=== PATIENT | female | born 2000 | race Caucasian/White ===

== ENCOUNTER 2024-03-25 21:36 | Emergency (ER) | payer OTHER, SELFPAY ==
[2024-03-25 21:44] VITALS: BP 126/83; PULSE 95; RESP 17; TEMP 36.8; O2SAT 99; BMI 24.7
--- NOTE | 2024-03-25 23:09 | ED.DENTAL ---
HPI - Dental/Oral General Chief complaint: Dental/Oral Stated complaint: face pain/ Time Seen by Provider: 03/25/24 22:45 Source: patient Mode of arrival: ambulatory Limitations: no limitations History of Present Illness ED Provider: katty OLIVIER Narrative: Patient is 13 weeks noticed pain and swelling of the left lower jaw for last 2 days does have a dental caries but tooth is not bothering her lately no fever no chills has not seen a dentist lately Related Data Previous Rx's ?Medication ?Instructions ?Recorded amoxicillin 875 mg-potassium 1 tab PO BID #20 tabs 03/25/24 clavulanate 125 mg tablet oxycodone 5 mg tablet 5 mg PO Q6H PRN pain #20 tabs 03/25/24 Allergies Allergy/AdvReac Type Severity Reaction Status Date / Time ondansetron [From ZOFRAN] Allergy Intermediate FACIAL Verified 03/25/24 21:47 HIVES aspirin [ASA] Allergy Unknown Verified 03/25/24 21:48 Review of Systems Review of Systems: Yes all other systems are reviewed and are negative FOR[facility]LY [facility], [facility] Social History Social History Advance Directives: No Advance Directives Information Provided: No Do you have a plan to hurt others: No Plan Physical Exam Vital Signs: Vital Signs: Last Vital Signs Temp 98.2 F 03/25/24 21:44 Pulse 95 03/25/24 21:44 Resp 17 03/25/24 21:44 BP 126/83 03/25/24 21:44 Pulse Ox 99 03/25/24 21:44 O2 Del Method Room Air 03/25/24 21:44 BMI result Body Mass Index 24.7 HEENT: Face images: 1. Tenderness and swelling left lower jaw Teeth image: 1. Caries tooth with local tenderness and gum swelling Medical Decision Making Medical Decision Making MDM Narrative: Patient likely with early dental abscess left lower 1st molar tooth 19.. Will give Augmentin oxycodone pain advised to follow with dentist Discharge Plan Discharge Clinical Impression: Dental abscess Patient Disposition: Home, Self-Care Instructions: Dental Abscess (ED) Additional Instructions: Take antibiotic as prescribed Tylenol/oxycodone for pain Follow up with your dentist Prescriptions: New oxycodone 5 mg tablet 5 mg PO Q6H PRN (Reason: pain) Qty: 20 0RF Rx Instructions: Partial Fill upon patient request. amoxicillin-pot clavulanate 875-125 mg tablet 1 tab PO BID Qty: 20 0RF Print Language: Serbian
[2024-03-25] MEDS: oxyCODONE HCl Immed Release 5 MG TABLET PO (23:46)
[2024-03-25] MEDS: Amoxicillin/Potassium Clav 875 MG TABLET PO (23:46)
[2024-03-25 23:50] VITALS: BP 119/76; PULSE 87; RESP 18; TEMP 36.8; O2SAT 99
[2024-03-26 00:02] VITALS: BP 119/76; PULSE 87; RESP 18; TEMP 36.8; O2SAT 99
== END 2024-03-25 23:55 | disposition home or self-care (01) ==
PROVIDERS: Emergency Provider Internal Medicine; PCP Student in an Organized Health Care Education/Training Program
DX: O26.891 Other specified pregnancy related conditions, first trimester (principal); K02.9 Dental caries, unspecified; Z3A.13 13 weeks gestation of pregnancy
CPT/HCPCS: 99283; 99284